=== PATIENT | male | born 1955 | race Caucasian/White ===

== ENCOUNTER 2021-08-30 06:16 | Emergency (ER) | payer BC ==
[2021-08-30] MEDS ORDERED: HYDROcodone/Acetaminophen 5/325 mg Tablet ONE (06:54)
[2021-08-30] MEDS ORDERED: Sterile Water 10 ML ONE (08:50)
[2021-08-30] MEDS ORDERED: CEFAZOLIN 1 GM VIAL ONE (08:50)
[2021-08-30] MEDS ORDERED: Lidocaine 1% (PF) 30 ML VIAL ONE (09:49)
== END 2021-08-30 13:39 | disposition home or self-care (01) ==
LOC: CSHERS 06:16
DX: S68.121A Partial traumatic metacarpophalangeal amputation of left index finger, initial encounter (principal); W22.8XXA Striking against or struck by other objects, initial encounter
CPT/HCPCS: 96372; J0690; J2001

== ENCOUNTER 2023-06-01 07:33 | Day surgery (SDC) | payer MEDICARE ==
[2023-05-30 15:00] VITALS: BMI 30.2
[2023-06-01] MEDS ORDERED: PROPOFOL 40 ML ONE (08:39)
[2023-06-01] MEDS ORDERED: PROPOFOL 20 ML ONE ×2 (10:15→10:30)
== END 2023-06-01 11:40 | disposition home or self-care (01) ==
LOC: CSHSDC 07:33
PROVIDERS: ATTEND Surgery
PROC: 0DBK8ZX Excision of Ascending Colon, Via Natural or Artificial Opening Endoscopic, Diagnostic (ICD-10-PCS; principal; 2023-06-01)
PROC: 0DBL8ZX Excision of Transverse Colon, Via Natural or Artificial Opening Endoscopic, Diagnostic (ICD-10-PCS; 2023-06-01)
DX: Z12.11 Encounter for screening for malignant neoplasm of colon (principal); D12.2 Benign neoplasm of ascending colon; I10 Essential (primary) hypertension; E78.5 Hyperlipidemia, unspecified; K21.9 Gastro-esophageal reflux disease without esophagitis; Z79.899 Other long term (current) drug therapy; Z98.890 Other specified postprocedural states
CPT/HCPCS: 88305; J2704